=== PATIENT | male | born 1960 | race Two or more races ===

== ENCOUNTER → 2017-01-22 | Outpatient (CLI) | payer OTHER ==
--- NOTE | 2017-01-22 15:17 | RAD ---
Bilateral knees, 6 views, 01/22/2017: History: Knee pain AP standing, lateral and tangential patellar views of both knees were obtained as requested. The knee joint spaces are fairly well preserved. There is mild marginal spurring at the knee joints and at the patellofemoral articulations. No fracture or dislocation is identified. No significant joint effusion is seen. IMPRESSION: 1. Mild bilateral degenerative changes. 2. No acute abnormality is detected.
== END ==
LOC: DXRADRC 13:33
PROVIDERS: ATTEND Orthopaedic Surgery Sports Medicine
DX: M25.562 Pain in left knee (principal); M25.561 Pain in right knee
CPT/HCPCS: 73564